=== PATIENT | female | born 1990 ===

== ENCOUNTER 2018-02-20 05:43 | Emergency (ER) | payer OTHER ==
[~2018-02-20] VITALS: Ht 149.9 cm; Wt 103.4 kg
[2018-02-20] MEDS ORDERED: PANADOL EXTRA500 MG (06:06)
[2018-02-20] MEDS ORDERED: AMOXICILLIN500 MG (06:07)
[2018-02-20] MEDS ORDERED: ULTRACET PO (07:34)
[2018-02-20] MEDS ORDERED: CEFUROXIME500 MG PO (07:34)
== END 2018-02-20 07:30 | disposition home or self-care (01) ==
LOC: ER 05:43
DX: K04.7 Periapical abscess without sinus (principal)

== ENCOUNTER 2018-03-18 05:57 | Inpatient (IN) | payer OTHER ==
[~2018-03-18] VITALS: Ht 149.9 cm; Wt 3.6 kg
[~2018-03-18 05:57] MED LIST: AMOXICILLIN500 MG; CEFUROXIME500 MG PO; PANADOL EXTRA500 MG; ULTRACET PO
[2018-03-18] MEDS ORDERED: PRENATAL TABLE1 EAC2 PO (06:50)
[2018-03-20] MEDS ORDERED: SURFAK240 M1 PO (12:22)
[2018-03-20] MEDS ORDERED: PERCOCET 5-3251 EACH PO (12:22)
== END 2018-03-20 13:13 | disposition home or self-care (01) | DRG 766 ==
LOC: LDR 05:57 → OB/GYN 17:25
PROVIDERS: Specialist
PROC: 0UL70ZZ Occlusion of Bilateral Fallopian Tubes, Open Approach (ICD-10-PCS; 2018-03-18)
PROC: 4A033R1 Measurement of Arterial Saturation, Peripheral, Percutaneous Approach (ICD-10-PCS; 2018-03-18)
PROC: 4A1HXCZ Monitoring of Products of Conception, Cardiac Rate, External Approach (ICD-10-PCS; 2018-03-18)
PROC: 10D00Z1 Extraction of Products of Conception, Low, Open Approach (ICD-10-PCS; principal; 2018-03-18 07:00)
DX: O99.824 Streptococcus B carrier state complicating childbirth (principal); Z3A.39 39 weeks gestation of pregnancy; Z37.0 Single live birth; Z30.2 Encounter for sterilization